=== PATIENT | male | born 1945 | race Caucasian/White ===

== ENCOUNTER 2020-05-20 09:02 | Day surgery (SDC) | payer OTHER, MEDICARE ==
[~2020-05-20 09:02] MED LIST: Midazolam 1 MG/ML 2 ML SDV ONE; Propofol 200 MG/20 ML SDV ONE
--- NOTE | 2020-05-20 10:04 | PCM.PREANE ---
Preanesthetic Assessment - Anesthesia/Transfusion/Family Hx Anesthesia History: Prior Anesthesia Without Reaction Family History of Anesthesia Reaction: No Transfusion History: No Prior Transfusion(s) - Review of Systems General: No Symptoms Pulmonary: No Symptoms Cardiovascular: No Symptoms Gastrointestinal: No Symptoms Neurological: No Symptoms Other: Reports: None - Physical Assessment NPO Status Date: 05/20/20 NPO Status Time: 00:05 Vital Signs: Last Vital Signs Temp 96.6 F L 05/20/20 09:23 Pulse 60 05/20/20 09:23 Resp 16 05/20/20 09:23 BP 106/63 05/20/20 09:23 Pulse Ox 98 05/20/20 09:23 Height: 5 ft 8 in Weight: 186 lb Mental Status: Alert & Oriented x3 Airway Class: Mallampati = 2 Dentition: Reports: Normal Dentition, Dentures ROM/Head Extension: Limited/Partial Lungs: Clear to Auscultation, Normal Respiratory Effort Cardiovascular: Regular Rate, Regular Rhythm - Allergies Allergies/Adverse Reactions: Allergies Allergy/AdvReac Type Severity Reaction Status Date / Time Penicillins Allergy Itching Verified 05/20/20 09:27 - Anesthesia Plan Pre-Op Medication Ordered: None - Acknowledgements Anesthesia Type Planned: General Anesthesia Pt an Appropriate Candidate for the Planned Anesthesia: Yes Alternatives and Risks of Anesthesia Discussed w Pt/Guardian: Yes Pt/Guardian Understands and Agrees with Anesthesia Plan: Yes Additional Comments: npo htn no cv problems tob quit 2009 etoh quit 2007 CKD II par no questions upper denture PreAnesthesia Questionnaire HEENT History: Reports: Other (See Below) Other HEENT History: wears glasses, top denture Cardiovascular History: Reports: High Cholesterol, Hypertension Respiratory History: Reports: None Gastrointestinal History: Reports: Other (See Below) Other Gastrointestinal History: occasional heartburn Genitourinary History: Reports: None Musculoskeletal History: Reports: None Neurological History: Reports: None Psychiatric History: Reports: None Endocrine/Metabolic History: Reports: None Hematologic History: Reports: None Immunologic History: Reports: None Oncologic (Cancer) History: Reports: Squamous Cell Carcinoma Other Oncologic History: squamous cell carcinoma from arm, precancer removed from back Dermatologic History: Reports: None - Past Surgical History Head Surgeries/Procedures: Reports: None HEENT Surgical History: Reports: Cataract Surgery Cardiovascular Surgical History: Reports: None Respiratory Surgical History: Reports: None GI Surgical History: Reports: None Male Surgical History: Reports: None Endocrine Surgical History: Reports: None Neurological Surgical History: Reports: None Musculoskeletal Surgical History: Reports: Other (See Below) Other Musculoskeletal Surgeries/Procedures:: excision of ganglion cyst Oncologic Surgical History: Reports: Other (See Below) Other Oncologic Surgeries/Procedures: skin biopsies from arm and back Dermatological Surgical History: Reports: Skin Biopsy - SUBSTANCE USE Tobacco Use Status *Q: Former Tobacco User Tobacco Use Within Last Twelve Months: No - HOME MEDS Home Medications: Home Meds Aspirin [Adult Aspirin Regimen] 81 mg PO DAILY 05/14/20 [History] Multivitamin 1 tab PO DAILY 05/14/20 [History] Simvastatin [Zocor] 10 mg PO DAILY 05/14/20 [History] lisinopriL [Lisinopril] 5 mg PO DAILY 05/14/20 [History] - CURRENT (IN HOUSE) MEDS Current Meds: Current Medications Discontinued Medications Midazolam HCl (Midazolam 1 Mg/Ml 2 Ml Sdv) Confirm Administered Dose 2 mg .ROUTE .STK-MED ONE Stop: 05/20/20 07:24 Propofol (Propofol 200 Mg/20 Ml Sdv) Confirm Administered Dose 600 mg .ROUTE .STK-MED ONE Stop: 05/20/20 07:23
--- NOTE | 2020-05-20 11:22 | PCM.OPNOTE ---
- General Post-Op/Procedure Note Date of Surgery/Procedure: 05/20/20 Operative Procedure(s): colonoscopy with polypectomies Findings: Multiple smaller colon polyps one larger polyp that was not remove - question broad base polyp vs a mucosal fold prolapse dictation number # [id number] Pre Op Diagnosis: screening colonoscopy Post-Op Diagnosis: Multiple smaller colon polyps. one larger polyp that was not remove - question broad base polyp vs a mucosal fold prolapse Primary Surgeon: Benoit Parekh Pathology: colon polyps and biopsies Complications: None Condition: Good
--- NOTE | 2020-05-20 12:00 | PCM.POSTAN ---
POST ANESTHESIA ASSESSMENT - MENTAL STATUS Mental Status: Alert, Oriented - VITAL SIGNS Vital Signs: Last Vital Signs Temp 96.6 F L 05/20/20 09:23 Pulse 33 L 05/20/20 11:29 Resp 13 05/20/20 11:29 BP 94/38 L 05/20/20 11:29 Pulse Ox 94 L 05/20/20 11:29 - RESPIRATORY Respiratory Status: Respiratory Rate WNL, Airway Patent, O2 Saturation Stable - CARDIOVASCULAR CV Status: Pulse Rate WNL, Blood Pressure Stable - GASTROINTESTINAL GI Status: No Symptoms - POST OP HYDRATION Hydration Status: Adequate & Stable - OBSERVATIONS Free Text/Narrative:: During the colonoscopy, pt's heart rate found to be is the 30's after 1-2 mg versed given IV. Glycopyrolate 0.2 + 0.2 mg given IV - Hr gradually increased to the 60's. There was never any hypotension. His preop BP was around 106/66 with a hr of 60. He takes Lisinopril for BP control and has had no cv problems in the past. In PACU HR in the 30's with no bp's. Pt is alert and oriented. Pt has never had any episodes of lightheadedness, dizziness, or nausea at home. 12 lead ECG obtained and reviewed with the local hse coordinator. LUI, sinus bradycardia. He called the p waves without a qrs dropped PAC's. Plan Pt will make an appointment with cardiology for followup and will come to the ER immediately for any cp, sob, dizziness, lightheadedness, or anything new
--- NOTE | 2020-05-20 12:01 | PCM48HPAN ---
Post Anesthesia Note - EVALUATION WITHIN 48HRS OF ANESTHETIC Vital Signs in Normal Range: Yes Patient Participated in Evaluation: Yes Respiratory Function Stable: Yes Airway Patent: Yes Cardiovascular Function Stable: Yes Hydration Status Stable: Yes Pain Control Satisfactory: Yes Nausea and Vomiting Control Satisfactory: Yes Mental Status Recovered: Yes Vital Signs: Last Vital Signs Temp 96.6 F L 05/20/20 09:23 Pulse 33 L 05/20/20 11:29 Resp 13 05/20/20 11:29 BP 94/38 L 05/20/20 11:29 Pulse Ox 94 L 05/20/20 11:29
--- NOTE | 2020-05-20 22:27 | OR ---
SURGEON: PENNY MANRIQUE MD DATE OF PROCEDURE: 05/20/2020 PREOPERATIVE DIAGNOSIS: Screening colonoscopy. POSTOPERATIVE DIAGNOSES: 1. Multiple small polyps. 2. Patient had a larger polyp, was not removed, really question mucosal fold prolapsing polyp versus a very broad-base polyp. Biopsies were taken of it. PROCEDURE PERFORMED: Colonoscopy, multiple hot snare polypectomy, cold biopsy polypectomy, and biopsies. BOWEL PREP: Excellent. LIMITATIONS: Again, patient had a larger polyp at about 40 cm. This looked to be more like prolapsing mucosal fold than actual polyp. EXTENT OF COLONOSCOPY: To the cecum. REASON FOR PROCEDURE: Patient is a pleasant 75-year-old gentleman whose last colonoscopy was in 2008. The patient reports it as being normal. Denies any blood in stool. He denies any family history of colon cancer. PROCEDURE IN DETAIL: Physical examination was performed. The major risks and benefits associated with procedure were explained to the patient in detail. Patient verbalized understanding of the same. The patient was connected to the appropriate monitoring devices and IV was started. EKG, pulse, pulse oximetry, blood pressure, and capnography were monitored throughout the procedure. Continuous oxygen and sedation were provided by the anesthesiologist. The patient was noted to have some bradycardia that was cleared by Anesthesia for procedure. The patient was placed in the left lateral decubitus position, and again, after adequate sedation was achieved, digital rectal was performed. No rectal masses or polyps were felt. Now, a well-lubricated Olympus colonoscope was entered in the rectum and advanced under direct visualization to the level of the cecum. Cecum was identified by both visual and anatomic landmarks. Photographs were taken of the cecal cap. Scope was then slowly withdrawn in somewhat circular fashion looking at the color, texture, anatomy, and integrity of the mucosa from the cecum to the anal canal. The patient had some very minimal light liquid stool, which was suctioned and irrigated out for an excellent mucosa. The patient did have a polyp at about 50 cm. This was removed with snare polypectomy. He also had another polyp right around 50 cm, again was removed with cold biopsy polypectomy. Good hemostasis. Both polyps appeared to be completely removed. Scope was continued to be withdrawn. At about 40 cm, the patient had this looked to be more of a prolapsing mucosal fold, however, could not exclude that it is actually broad based polyp. Did do multiple biopsies of this. There was good hemostasis. The scope was withdrawn and there was another smaller polyp at about 39 cm, removed with a hot snare polypectomy, appeared to be completely removed. The scope was completely withdrawn. The patient had another polyp at 30 cm. This was removed with a cold biopsy polypectomy. Again, good hemostasis, appeared to be completely removed. Scope was then withdrawn to the rectum. He had some noninflamed internal hemorrhoids. Scope was completely removed, procedure was terminated. OPERATIVE FINDINGS: Multiple colon polyps. One lesion looked more like the mucosal fold prolapse, did do multiple biopsies of this. RECOMMENDATIONS: Followup colonoscopy will depend on pathology. The patient will follow up in clinic. KARAN ARENAS /[id number]
== END 2020-05-20 12:22 | disposition home or self-care (01) ==
LOC: MW.SDS 09:02
PROVIDERS: ATTEND Surgery
DX: Z12.11 Encounter for screening for malignant neoplasm of colon (principal); D12.3 Benign neoplasm of transverse colon; K64.8 Other hemorrhoids; I10 Essential (primary) hypertension; E78.00 Pure hypercholesterolemia, unspecified; Z88.0 Allergy status to penicillin; Z79.82 Long term (current) use of aspirin; Z85.89 Personal history of malignant neoplasm of other organs and systems; Z87.891 Personal history of nicotine dependence; Z98.890 Other specified postprocedural states
CPT/HCPCS: 45380; 45385; 88305; 93005; J2250; J2704; 00812

== ENCOUNTER 2021-12-07 11:15 | Day surgery (SDC) | payer MEDICARE, OTHER ==
[~2021-12-07 11:15] MED LIST changes: +Lactated Ringers 1,000 ML IV SCH; -Midazolam 1 MG/ML 2 ML SDV ONE; +Sodium Chloride 0.9% 10 ML Syringe FLUSH PRN; +Sodium Chloride 0.9% 2.5 ML Syringe FLUSH PRN; +Sodium Chloride 0.9% 20 ML SDV IV PRN
[2021-12-07] MEDS ORDERED: Lidocaine 2% 5 ML SDV ONE (12:33)
== END 2021-12-07 14:10 | disposition home or self-care (01) ==
LOC: MW.SDS 11:15
PROVIDERS: ATTEND Surgery
DX: D12.3 Benign neoplasm of transverse colon (principal); D12.4 Benign neoplasm of descending colon; D12.5 Benign neoplasm of sigmoid colon; I10 Essential (primary) hypertension; E78.00 Pure hypercholesterolemia, unspecified; N40.0 Benign prostatic hyperplasia without lower urinary tract symptoms; Z98.890 Other specified postprocedural states; Z79.899 Other long term (current) drug therapy; Z88.0 Allergy status to penicillin; Z88.8 Allergy status to other drugs, medicaments and biological substances; Z87.891 Personal history of nicotine dependence
CPT/HCPCS: 45380; 45385; J2704; J7120; 00811; 88305; 99100

== ENCOUNTER 2024-05-07 10:08 | Day surgery (SDC) | payer OTHER, MEDICARE ==
[~2024-05-07 10:08] MED LIST changes: -Lactated Ringers 1,000 ML IV SCH; -Propofol 200 MG/20 ML SDV ONE
[2024-05-07] MEDS: Lactated Ringers 1,000 ML IV SCH (10:43)
[2024-05-07] MEDS ORDERED: Propofol 200 MG/20 ML SDV ONE (10:50)
[2024-05-07] MEDS ORDERED: Lidocaine 2% 5 ML SDV ONE (10:50)
== END 2024-05-07 13:15 | disposition home or self-care (01) ==
LOC: MW.SDS 10:08
PROVIDERS: ATTEND Surgery
DX: Z12.11 Encounter for screening for malignant neoplasm of colon (principal); I12.9 Hypertensive chronic kidney disease with stage 1 through stage 4 chronic kidney disease, or unspecified chronic kidney disease; N18.9 Chronic kidney disease, unspecified; E78.00 Pure hypercholesterolemia, unspecified; Z88.8 Allergy status to other drugs, medicaments and biological substances; Z88.0 Allergy status to penicillin; Z79.899 Other long term (current) drug therapy; Z87.891 Personal history of nicotine dependence; Z86.0100 Personal history of colon polyps, unspecified
CPT/HCPCS: 45378; J2003; J2704; J7120; 00811; 99100